=== PATIENT | male | born 1975 | race Two or more races ===

== ENCOUNTER 2020-07-29 05:30 | Day surgery (SDC) | payer OTHER ==
[~2020-07-29 05:30] MED LIST: CANABIS PO; PROBIOTIC1 EAC2 PO
[2020-07-29] MEDS ORDERED: COLACE100 MG PO (08:46)
[2020-07-29] MEDS ORDERED: PERCOCET 5-3251 EACH PO (08:46)
== END 2020-07-29 15:50 | disposition home or self-care (01) ==
LOC: CIR.AMB 05:30
PROVIDERS: ATTEND Surgery
DX: D12.8 Benign neoplasm of rectum (principal); K62.82 Dysplasia of anus; Z20.828 Contact with and (suspected) exposure to other viral communicable diseases

== ENCOUNTER 2021-09-11 07:03 | Day surgery (SDC) | payer OTHER ==
[~2021-09-11 07:03] MED LIST changes: +COLACE100 MG PO; +PERCOCET 5-3251 EACH PO
== END 2021-09-11 11:00 | disposition home or self-care (01) ==
LOC: AMB-ENDOS 07:03
PROVIDERS: ATTEND Surgery
DX: K62.89 Other specified diseases of anus and rectum (principal)

== ENCOUNTER 2024-10-08 13:05 | Emergency (ER) | payer OTHER ==
[~2024-10-08] VITALS: Ht 175.3 cm; Wt 81.6 kg
[2024-10-08] MEDS ORDERED: BARIUM SULFATE 450 ML ORAL.SUSP PO ONE (14:12)
[2024-10-08] MEDS ORDERED: 0.9 % SODIUM CHLORIDE 1,000 ML IV SCH (14:15)
[2024-10-08 14:35] LABS: HEMATOCRIT 42.9 % (39.0-48.0); HEMOGLOBIN 14.6 g/dL (13-16.00); MEAN CELL VOLUME 86.8 fL (80.0-100.00); MEAN CORPUSCULAR HEMOGLOBIN 29.4 pg (27.00-32.0); MEAN CORPUSCULAR HGB CONC 33.9 g/dl (32.0-36.0); PLATELET COUNT 268 K/uL (150-450); RED BLOOD COUNT 4.95 M/uL (4.00-6.00); RED CELL DISTRIBUTION WIDTH 13.2 % (11.5-14.5)
[2024-10-08 15:02] LABS: CALCIUM 9.5 mg/dL (8.5-10.1); CREATININE SERUM 1.13 mg/dL (0.70-1.30); GFR 68.69; POTASSIUM 3.86 mEq/L (3.5-5.1)
[2024-10-08 16:17] LABS: PH,URINE 7.5 (5.0-8.0); URINE APPEARANCE Clear; URINE BILIRRUBIN Negative (NEGATIVE); URINE BLOOD Negative; URINE COLOR Yellow; URINE GLUCOSE Negative (NEGATIVE); URINE KETONE Negative (NEGATIVE); URINE LEUKOCYTE Negative; URINE NITRATE Negative; URINE PROTEIN Negative (NEGATIVE); URINE UROBILINOGEN 0.2 E.U./dl
[2024-10-08 16:26] LABS: URINE BACTERIA 1.2 uL (0.0-1933); URINE EPITHELIAL CELLS 0.3 uL (0.0-38.8); URINE RBC 1.3 uL (0.0-20.8); URINE WBC 0.1 uL (0.0-23.2)
[2024-10-08] MEDS ORDERED: DICY20TA PO (18:27)
[2024-10-08] MEDS ORDERED: PEPCID AC20 MG PO (18:27)
== END 2024-10-08 18:32 | disposition home or self-care (01) ==
LOC: ER 13:08
PROVIDERS: Emergency Medicine
DX: K29.70 Gastritis, unspecified, without bleeding (principal); Z91.040 Latex allergy status; Z85.038 Personal history of other malignant neoplasm of large intestine